=== PATIENT | female | born 1990 | race Caucasian/White ===

== ENCOUNTER 2023-05-16 10:52 | Emergency (ER) | payer OTHER ==
[~2023-05-16] VITALS: Ht 162.6 cm; Wt 76.0 kg
[2023-05-16 10:57] VITALS: O2SAT 100
[2023-05-16] MEDS ORDERED: TOPUD PO (11:17)
[2023-05-16 11:50] VITALS: BP 140/80; PULSE 70; RESP 16; TEMP 98.9
== END 2023-05-16 11:52 | disposition home or self-care (01) ==
LOC: ER 10:52
DX: U07.1 COVID-19 (principal)
CPT/HCPCS: 99281; 99282

== ENCOUNTER 2024-09-26 09:52 | Emergency (ER) | payer OTHER ==
[~2024-09-26] VITALS: Ht 162.6 cm; Wt 72.6 kg
[~2024-09-26 09:52] MED LIST: TOPUD PO
[2024-09-26 10:03] VITALS: O2SAT 99
[2024-09-26 10:44] LABS: CHLORIDE 103 mEq/L (98-107); POTASSIUM 3.7 mEq/L (3.5-5.1); SODIUM 135 mEq/L (136-145)
[2024-09-26 10:45] LABS: CALCIUM 9.6 mg/dL (8.7-10.4); CARBON DIOXIDE 26 mEq/L (21-32)
[2024-09-26 10:50] LABS: CREATININE 0.7 mg/dL (0.6-1.0); GLUCOSE 82 mg/dL (70-105); UREA NITROGEN BLOOD 7 mg/dL (9-23)
[2024-09-26 10:59] LABS: BASOPHILS % 0.3 % (0.0-2.0); HEMATOCRIT. 37.8 % (36.0-48.0); HEMOGLOBIN. 12.7 g/dL (12.0-16.0); LYMPHOCYTES % 39.9 % (20.0-50.0); MEAN CORPUSCULAR HEMOGLOBIN 29.1 pg (28.0-32.0); MEAN CORPUSCULAR HGB CONC 33.5 g/dL (31.0-37.0); MEAN PLATELET VOLUME 7.9 fl (7.4-10.4); MONOCYTES % 7.1 % (2.0-8.0); NEUTROPHILS % 50.7 % (40.0-76.0); PLATELET 295 x1000/uL (130-400); RED BLOOD CELL COUNT 4.34 mill/uL (4.2-5.4); RED CELL DISTRIBUTION WIDTH 13.9 % (11.6-14.6); WHITE BLOOD COUNT 7.8 x1000/uL (4.5-11.0)
[2024-09-26 11:10] LABS: HCG SCREEN NEGATIVE
[2024-09-26 11:23] LABS: TROPONIN I HIGH SENSITIVITY < 4 ng/L (3.0-34)
[2024-09-26 12:04] VITALS: BP 110/72; PULSE 68; RESP 16; TEMP 36.78072; O2SAT 99
== END 2024-09-26 12:06 | disposition home or self-care (01) ==
LOC: ER 09:54
DX: J06.9 Acute upper respiratory infection, unspecified (principal); B97.89 Other viral agents as the cause of diseases classified elsewhere; Z90.49 Acquired absence of other specified parts of digestive tract; Z20.822 Contact with and (suspected) exposure to COVID-19
CPT/HCPCS: 36415; 71045; 80048; 84484; 84703; 85025; 85379; 87426; 87804; 93005; 99285

== ENCOUNTER 2024-09-26 12:56 | Emergency (ER) | payer OTHER ==
[~2024-09-26] VITALS: Ht 162.6 cm; Wt 73.0 kg
[2024-09-26 13:01] VITALS: O2SAT 100
[2024-09-26 14:24] VITALS: TEMP 36.89184
[2024-09-26] MEDS ORDERED: IPRATROPIUM/ALBUTEROL 0.5-3(2.5)MG/3ML NEB HHN PRN (16:00)
[2024-09-26] MEDS ORDERED: GUAIFENESIN 200MG/10ML SUGAR FREE UDC PO PRN (16:00)
[2024-09-26] MEDS ORDERED: ONDANSETRON HCL 4MG/2ML INJ IV PRN (16:00)
[2024-09-26] MEDS ORDERED: ACETAMINOPHEN 325MG TABLET PO PRN ×2 (16:00)
[2024-09-26] MEDS ORDERED: DOCUSATE SODIUM 100MG CAPSULE PO PRN (16:00)
[2024-09-26] MEDS: AZITHROMYCIN 500 MG TABLET PO SCH (16:42)
[2024-09-26 16:56] VITALS: O2SAT 97
[2024-09-26 17:26] LABS: CLARITY URINE CLEAR (CLEAR); COLOR URINE YELLOW (YELLOW); GLUCOSE URINE NEGATIVE (NEGATIVE); KETONES URINE NEGATIVE (NEGATIVE); LEUKOCYTE ESTERASE URINE 2+ (NEGATIVE); NITRITE URINE NEGATIVE (NEGATIVE); OCCULT BLOOD URINE 2+ (NEGATIVE); PROTEIN URINE NEGATIVE (NEGATIVE); SPECIFIC GRAVITY URINE 1.007 (1.005-1.030); UROBILINOGEN URINE 0.2 E.U./dL (0.2-1.0)
[2024-09-26 17:41] LABS: *AMPHETAMINES SCREEN URINE NEGATIVE (NEGATIVE); *BARBITURATES SCREEN URINE NEGATIVE (NEGATIVE); *BENZODIAZEPINES SCREEN URINE NEGATIVE (NEGATIVE); *COCAINE SCREEN URINE NEGATIVE (NEGATIVE)
[2024-09-26 17:42] LABS: CANNABINOID URINE SCREEN NEGATIVE (NEGATIVE); ECSTASY MDMA SCREEN URINE NEGATIVE (NEGATIVE); METHADONE URINE SCREEN NEGATIVE (NEGATIVE); OPIATES URINE SCREEN NEGATIVE (NEGATIVE); PHENCYCLIDINE URINE SCREEN NEGATIVE (NEGATIVE)
[2024-09-26 18:00] LABS: BACTERIA URINE 1+; SQUAMOUS EPITHELIAL CELL URINE FEW /lpf (RARE/1+)
[2024-09-26] MEDS ORDERED: FAMOTIDINE 20MG TABLET PO SCH (21:00)
[2024-09-26] MEDS ORDERED: AMOXICILLIN 500MG CAPSULE PO SCH (22:00)
[2024-09-26 23:53] VITALS: BP 118/72; PULSE 86; RESP 20; TEMP 98.4
[2024-09-27] MEDS ORDERED: AZITHROMYCIN 250 MG TABLET PO SCH (09:00)
== END 2024-09-26 23:57 | disposition left against medical advice (07) ==
LOC: ER 13:05 → EDBEDREQSVC 15:35 → EDBEDREQTM 15:35 → EDBEDREQ 15:35 → ER 23:57
DX: R06.02 Shortness of breath (principal); F19.90 Other psychoactive substance use, unspecified, uncomplicated; Z90.49 Acquired absence of other specified parts of digestive tract
CPT/HCPCS: 80305; 81003; 81025; 83036; 85379; 36415; 84145; 93970; 99284; Z7610

== ENCOUNTER 2024-10-13 10:31 | Emergency (ER) | payer OTHER ==
[~2024-10-13] VITALS: Ht 162.6 cm; Wt 74.8 kg
[2024-10-13 10:33] VITALS: TEMP 36.66960; O2SAT 98
[2024-10-13 10:36] VITALS: BP 150/90; PULSE 76; RESP 16; TEMP 98; O2SAT 98
[2024-10-13 11:04] LABS: BASOPHILS % 0.6 % (0.0-2.0); EOSINOPHILS % 2.5 % (0.0-5.0); HEMATOCRIT. 38.3 % (36.0-48.0); HEMOGLOBIN. 12.7 g/dL (12.0-16.0); LYMPHOCYTES % 53.8 % (20.0-50.0); MEAN CORPUSCULAR HEMOGLOBIN 29.2 pg (28.0-32.0); MEAN CORPUSCULAR HGB CONC 33.2 g/dL (31.0-37.0); MEAN PLATELET VOLUME 7.8 fl (7.4-10.4); MONOCYTES % 5.5 % (2.0-8.0); NEUTROPHILS % 37.6 % (40.0-76.0); PLATELET 327 x1000/uL (130-400); RED BLOOD CELL COUNT 4.36 mill/uL (4.2-5.4); RED CELL DISTRIBUTION WIDTH 13.7 % (11.6-14.6); WHITE BLOOD COUNT 6.6 x1000/uL (4.5-11.0)
[2024-10-13 11:09] LABS: CHLORIDE 105 mEq/L (98-107); POTASSIUM 3.9 mEq/L (3.5-5.1); SODIUM 139 mEq/L (136-145)
[2024-10-13 11:10] LABS: CALCIUM 9.5 mg/dL (8.7-10.4); CARBON DIOXIDE 27 mEq/L (21-32)
[2024-10-13 11:15] LABS: CREATININE 0.7 mg/dL (0.6-1.0); GLUCOSE 124 mg/dL (70-105); UREA NITROGEN BLOOD 8 mg/dL (9-23)
[2024-10-13 11:36] LABS: TROPONIN I HIGH SENSITIVITY < 4 ng/L (3.0-34)
[2024-10-13] MEDS ORDERED: AZIT250T12 MT (11:44)
[2024-10-13] MEDS ORDERED: P20 MT (11:44)
== END 2024-10-13 12:08 | disposition home or self-care (01) ==
LOC: ER 10:31
DX: R05.9 Cough, unspecified (principal); Z90.49 Acquired absence of other specified parts of digestive tract; Z20.822 Contact with and (suspected) exposure to COVID-19
CPT/HCPCS: 36415; 71045; 80048; 84484; 85025; 87426; 87804; 93005; 99285

== ENCOUNTER 2025-07-11 14:59 | Emergency (ER) | payer OTHER ==
[~2025-07-11] VITALS: Ht 162.6 cm; Wt 70.0 kg
[~2025-07-11 14:59] MED LIST changes: +AZIT250T12 MT; +P20 MT
[2025-07-11 15:14] VITALS: TEMP 36.9; O2SAT 100
[2025-07-11 16:03] LABS: CLARITY URINE CLOUDY (CLEAR); COLOR URINE YELLOW (YELLOW); GLUCOSE URINE NEGATIVE (NEGATIVE); KETONES URINE NEGATIVE (NEGATIVE); LEUKOCYTE ESTERASE URINE 2+ (NEGATIVE); NITRITE URINE NEGATIVE (NEGATIVE); OCCULT BLOOD URINE 1+ (NEGATIVE); PH URINE 6.5 (4.5-8.0); PROTEIN URINE NEGATIVE (NEGATIVE); SPECIFIC GRAVITY URINE 1.021 (1.005-1.030); UROBILINOGEN URINE 0.2 E.U./dL (0.2-1.0)
[2025-07-11 16:17] LABS: BASOPHILS % 0.4 % (0.0-2.0); EOSINOPHILS % 1.6 % (0.0-5.0); HEMATOCRIT. 38.4 % (36.0-48.0); HEMOGLOBIN. 12.9 g/dL (12.0-16.0); LYMPHOCYTES % 34.7 % (20.0-50.0); MEAN PLATELET VOLUME 7.5 fl (7.4-10.4); MONOCYTES % 5.2 % (2.0-8.0); NEUTROPHILS % 58.1 % (40.0-76.0); PLATELET 349 x1000/uL (130-400); RED BLOOD CELL COUNT 4.40 mill/uL (4.2-5.4); RED CELL DISTRIBUTION WIDTH 13.3 % (11.6-14.6)
[2025-07-11 16:17] LABS: SQUAMOUS EPITHELIAL CELL URINE 3+ /lpf (RARE/1+)
[2025-07-11 16:18] LABS: BACTERIA URINE 2+; YEAST URINE NONE SEEN
[2025-07-11 16:36] LABS: CREATININE 0.7 mg/dL (0.6-1.0); UREA NITROGEN BLOOD 6 mg/dL (9-23)
[2025-07-11 16:37] LABS: TROPONIN I HIGH SENSITIVITY < 4 ng/L (3.0-34)
[2025-07-11] MEDS: MORPHINE SULFATE 2 MG/ML INJ (NOT FOR IM USE) IV ONE (17:00)
[2025-07-11] MEDS: ONDANSETRON HCL 4MG/2ML INJ IV ONE (18:31)
[2025-07-11] MEDS: SODIUM CHLORIDE 0.9% 1,000 ML IV ONE (18:31)
[2025-07-11] MEDS: HYDROCODONE/ACETAMINOPHEN 5/325MG TABLET PO ONE (20:25)
[2025-07-11] MEDS ORDERED: ONDA4TAB50 MT (20:26)
[2025-07-11] MEDS ORDERED: IBUP-1455 MT (20:26)
[2025-07-11] MEDS ORDERED: TOPUD MT (20:26)
[2025-07-11] MEDS ORDERED: NITR-87 MT (20:26)
[2025-07-11 20:36] VITALS: BP 115/62; PULSE 63; RESP 12; O2SAT 100
== END 2025-07-11 20:47 | disposition home or self-care (01) ==
LOC: ER 15:09
DX: R10.31 Right lower quadrant pain (principal); Z90.49 Acquired absence of other specified parts of digestive tract; Z79.899 Other long term (current) drug therapy
CPT/HCPCS: 80048; 81003; 81025; 85025; 84484; 36415; 74176; 93005; 96361; 96374; 99285; J2405; J7030; Z7610 ×2

== ENCOUNTER 2025-07-26 22:27 | Emergency (ER) | payer OTHER ==
[~2025-07-26] VITALS: Ht 162.6 cm; Wt 72.0 kg
[~2025-07-26 22:27] MED LIST changes: +IBUP-1455 MT; +NITR-87 MT; +ONDA4TAB50 MT; +TOPUD MT
[2025-07-26 22:51] VITALS: O2SAT 99
[2025-07-27 00:43] LABS: BASOPHILS % 0.5 % (0.0-2.0); EOSINOPHILS % 1.2 % (0.0-5.0); HEMATOCRIT. 36.4 % (36.0-48.0); HEMOGLOBIN. 12.0 g/dL (12.0-16.0); LYMPHOCYTES % 32.0 % (20.0-50.0); MEAN PLATELET VOLUME 7.6 fl (7.4-10.4); MONOCYTES % 5.0 % (2.0-8.0); NEUTROPHILS % 61.3 % (40.0-76.0); PLATELET 348 x1000/uL (130-400); RED BLOOD CELL COUNT 4.19 mill/uL (4.2-5.4); RED CELL DISTRIBUTION WIDTH 13.3 % (11.6-14.6)
[2025-07-27 01:02] LABS: CREATININE 0.8 mg/dL (0.6-1.0); UREA NITROGEN BLOOD 10 mg/dL (9-23)
[2025-07-27] MEDS: ACETAMINOPHEN 325MG TABLET PO NR (01:06)
[2025-07-27 01:08] LABS: HCG SCREEN NEGATIVE
[2025-07-27] MEDS ORDERED: IBUP-1455 MT (01:28)
[2025-07-27] MEDS ORDERED: BACL-141 MT (01:28)
[2025-07-27 01:43] VITALS: BP 123/68; PULSE 59; RESP 18; TEMP 36.7; O2SAT 100
== END 2025-07-27 01:45 | disposition home or self-care (01) ==
LOC: ER 22:27
DX: G44.209 Tension-type headache, unspecified, not intractable (principal); M54.2 Cervicalgia
CPT/HCPCS: 36415; 80048; 84703; 85025; 99283